=== PATIENT | female | born 1990 | race American Indian/Alaskan Native ===

== ENCOUNTER 2019-11-21 16:06 | Emergency (ER) | payer MEDICAID ==
[2019-11-21 16:14] VITALS: BP 113/73
[2019-11-21] MEDS ORDERED: ONDANSETRON 4 MG/2 ML INJ IV ONE ×2 (16:44→18:41)
[2019-11-21] MEDS ORDERED: SODIUM CHLORIDE 0.9% 1000 ML 1,000 ML IV ONE (16:44)
--- NOTE | 2019-11-21 17:00 | Emergency Department Report ---
ED HPI - General Chief complaint: Nausea/Vomiting/Diarrhea Stated complaint: VOMITTING Time Seen by Provider: 11/21/19 16:43 Source: patient Mode of arrival: Ambulatory Limitations: No Limitations - History of Present Illness Initial comments: 29-year-old -Surinames[place] female presents to the emergency room for nausea vomiting and right lower side pain. Patient states that she is but unsure of the weeks. Patient reports she has not started any care. Patient reports her last menstrual period was approximately September 22, 2019. Patient is 4 para 1 with 2 abortions. Patient reports no medical history has had ovarian cyst vaginal delivery hernia repair. Patient reports she takes no medications on a daily basis has no known drug allergies. Reports pain to 5 out of 10 complains of nausea and vomiting. MD Complaint: abdominal pain Onset/Timin -: days(s) Radiation: RLQ Severity: moderate Severity scale (0 -10): 5 Quality: sharp Consistency: intermittent Improves with: none Worsens with: none Associated symptoms: nausea/vomiting. denies: vaginal bleeding, vaginal discharge, headache, shortness of breath, weakness Vaginal bleeding: none :: Yes Last menstrual period: 09/22/19 Pre-emily care: none - Related Data : 4 Para: 1 Ab: 2 Previous Rx's Medication Instructions Recorded Last Taken Type Doxylamine Succinate [Nighttime 25 mg PO BID PRN #30 tablet 11/21/19 Unknown Rx Sleep-Aid] Vit-Fe Fumar-FA [ 1 tab PO QDAY #90 tablet 11/21/19 Unknown Rx Vitamin] Pyridoxine [Vitamin B-6 50MG TAB] 50 mg PO DAILY PRN #30 tab 11/21/19 Unknown Rx cephALEXin [Keflex] 500 mg PO Q12HR 7 Days #14 cap 11/21/19 Unknown Rx Allergies Allergy/AdvReac Type Severity Reaction Status Date / Time No Known Allergies Allergy Unverified 12/30/13 16:04 ED Review of Systems ROS: Stated complaint: VOMITTING Other details as noted in HPI Comment: All other systems reviewed and negative Gastrointestinal: nausea, vomiting ED Past Medical Hx - Past Medical History Previous Medical History?: Yes Additional medical history: ovarian cyst, Vaginal delivery x 1 - Surgical History Past Surgical History?: Yes Hx Appendectomy: Yes Additional Surgical History: hernia repair. ovarian cyst removed - Social History Smoking Status: Never Smoker - Medications Home Medications: Home Medications Medication Instructions Recorded Confirmed Last Taken Type Doxylamine Succinate [Nighttime 25 mg PO BID PRN #30 tablet 11/21/19 Unknown Rx Sleep-Aid] Vit-Fe Fumar-FA [ 1 tab PO QDAY #90 tablet 11/21/19 Unknown Rx Vitamin] Pyridoxine [Vitamin B-6 50MG TAB] 50 mg PO DAILY PRN #30 tab 11/21/19 Unknown Rx cephALEXin [Keflex] 500 mg PO Q12HR 7 Days #14 cap 11/21/19 Unknown Rx ED Physical Exam - General Limitations: No Limitations General appearance: alert, in no apparent distress, other (Actively vomiting) - Head Head exam: Present: atraumatic, normocephalic - Eye Eye exam: Present: normal appearance - ENT ENT exam: Present: mucous membranes moist - Neck Neck exam: Present: normal inspection, full ROM - Cardiovascular Cardiovascular Exam: Present: regular rate, normal rhythm. Absent: systolic murmur, diastolic murmur, rubs, gallop - Neurological Exam Neurological exam: Present: alert, oriented X3, normal gait - Psychiatric Psychiatric exam: Present: normal affect, normal mood - Skin Skin exam: Present: warm, dry, intact, normal color. Absent: rash ED Course Vital Signs 11/21/19 16:10 Temperature 98.2 F Pulse Rate 98 H Respiratory 18 Rate Blood Pressure 113/73 O2 Sat by Pulse 99 Oximetry ED Medical Decision Making - Lab Data Result diagrams: 11/21/19 16:50 11/21/19 16:50 - Radiology Data Radiology results: report reviewed Referring Physician:BARBARA VANEGASPatient Name:SHAVON HUERTASPatient ID:[id number] of :[id number]:FemaleAccession:[id number] Date:[id number] Status:Finalized Findings [facility] [address] [place] [address] Ultrasound Report Signed Patient: SHAVON HUERTAS MR#: [id number] : 1990 Acct:[id number] Age/Sex: 29 / F ADM Date: 11/21/19 Loc: ED Attending Dr: Ordering Physician: YULIA WEBSTER Date of Service: 11/21/19 Procedure(s): US OB transvaginal Accession Number(s): [id number] cc: YULIA WEBSTER US OB transvaginal, US OB <= 14 wk fetus add gest INDICATION / CLINICAL INFORMATION: Abdominal pain right lower quadrant. COMPARISON: None available. FINDINGS: Uterus measures 10 cm with small uterine fibroid. There is a viable single intrauterine gestation with a crown-rump length of 2.2 cm corresponding to an 8 week 6 day gestation. heart rate is recorded at 178 bpm. There appears to be a small subchorionic hemorrhage. 2.7 cm left ovarian cyst. The right ovary is normal. No free fluid collections are demonstrated. IMPRESSION: 1. Single viable a week 6 day intrauterine gestation. 2. Small uterine fibroid. 3. Tiny subchorionic hemorrhage. Signer Name: João Sewell MD Signed: 11/21/2019 6:17 PM Workstation Name: [id number] Transcribed By: [place] Dictated By: João Sewell MD Electronically Authenticated By: João Sewell MD Signed Date/Time: 11/21/191816 DD/ 13 TD/TT: - Medical Decision Making 29-year-old -[place] female presents to the emergency room for nausea vomiting and right lower side pain. Patient states that she is but unsure of the weeks. Patient reports she has not started any care. Patient reports her last menstrual period was approximately September 22, 2019. Patient is 4 para 1 with 2 abortions. Patient reports no medical his tory has had ovarian cyst vaginal delivery hernia repair. Patient reports she takes no medications on a daily basis has no known drug allergies. Reports pain to 5 out of 10 complains of nausea and vomiting. Urinalysis shows a mild urinary tract infection will treat with Keflex. Ultrasound shows she is 6 weeks and 4 days. Shows a mild subchorionic hemorrhage. Will start patient on vitamins referral to [facility]. Critical care attestation.: If time is entered above; I have spent that time in minutes in the direct care of this critically ill patient, excluding procedure time. ED Disposition Clinical Impression: Hyperemesis gravidarum Qualifiers: Weeks of gestation: less than 8 weeks Qualified Code(s): Z3A.01 - Less than 8 weeks gestation of UTI (urinary tract infection) during Qualifiers: Trimester: first trimester Qualified Code(s): O23.41 - Unspecified infection of urinary tract in , first trimester Disposition: DC-01 TO HOME OR SELFCARE Is pt being admited?: No Does the pt Need Aspirin: No Condition: Stable Instructions: Hyperemesis Gravidarum (ED), Urinary Tract Infection in Women (ED) Additional Instructions: Urine shows a mild urinary tract infection will treat you with antibiotics complete antibiotics as prescribed. Ultrasound shows that you are approximately 6 weeks and 4 days . I am placing you on vitamins and a referral to [facility]. Prescriptions: cephALEXin [Keflex] 500 mg PO Q12HR 7 Days #14 cap Doxylamine Succinate [Nighttime Sleep-Aid] 25 mg PO BID PRN #30 tablet PRN Reason: Nausea And Vomiting Vit-Fe Fumar-FA [ Vitamin] 1 tab PO QDAY #90 tablet Pyridoxine [Vitamin B-6 50MG TAB] 50 mg PO DAILY PRN #30 tab PRN Reason: Nausea And Vomiting Referrals: PRIMARY CAREMD [Primary Care Provider] - 3-5 Days [facility] [Provider Group] - 3-5 Days [facility] [Provider Group] - 3-5 Days [facility] [Provider Group] - 3-5 Days [facility] [Provider Group] - 3-5 Days
[2019-11-21 17:08] LABS: Basophils # (Auto) 0.1 K/mm3 (0.0-0.1); Basophils % (Auto) 0.5 % (0.0-1.8); Eosinophils % (Auto) 0.1 % (0.0-4.3); Hematocrit 38.5 % (30.3-42.9); Hemoglobin 13.1 gm/dl (10.1-14.3); Lymphocytes # (Auto) 1.7 K/mm3 (1.2-5.4); Lymphocytes % (Auto) 13.7 % (13.4-35.0); Mean Corpuscular HGB Conc 34 % (30-34); Mean Corpuscular Volume 86 fl (79-97); Monocytes # (Auto) 0.6 K/mm3 (0.0-0.8); Monocytes % (Auto) 4.6 % (0.0-7.3); Platelet Count 342 K/mm3 (140-440); Red Blood Count 4.47 M/mm3 (3.65-5.03); Red Cell Distribution Width 12.5 % (13.2-15.2)
[2019-11-21 17:20] LABS: Bacteria,Urine 1+ /HPF (Negative); Bilirubin,Urine NEG (Negative); Blood,Urine SM (Negative); Color,Urine Yellow (Yellow); Mucus,Urine 3+ /HPF; Protein,Urine <15 mg/dL mg/dL (Negative); Urobilinogen,Urine < 2.0 mg/dL (<2.0)
[2019-11-21 17:29] LABS: Alanine Aminotransferase 12 units/L (7-56); BUN/Creatinine Ratio 16; Blood Urea Nitrogen 11 mg/dL (7-17); Calcium 9.9 mg/dL (8.4-10.2); Hemolysis Index 8
--- NOTE | 2019-11-21 18:21 | Ultrasound Report ---
US OB transvaginal, US OB <= 14 wk fetus add gest INDICATION / CLINICAL INFORMATION: Abdominal pain right lower quadrant. COMPARISON: None available. FINDINGS: Uterus measures 10 cm with small uterine fibroid. There is a viable single intrauterine gestation with a crown-rump length of 2.2 cm corresponding to a n 8 week 6 day gestation. heart rate is recorded at 178 bpm. There appears to be a small subchorionic hemorrhage. 2.7 cm left ovarian cyst. The right ovary is normal. No free fluid collections are demonstrated. IMPRESSION: 1. Single viable a week 6 day intrauterine gestation. 2. Small uterine fibroid. 3. Tiny subchorionic hemorrhage. Signer Name: João Sewell MD Signed: 11/21/2019 6:17 PM Workstation Name: [id number]
== END 2019-11-21 18:59 | disposition home or self-care (01) ==
LOC: ED 16:06
DX: O21.0 Mild hyperemesis gravidarum (principal); O21.8 Other vomiting complicating pregnancy; O23.41 Unspecified infection of urinary tract in pregnancy, first trimester; Z3A.08 8 weeks gestation of pregnancy; Z79.899 Other long term (current) drug therapy; Z90.49 Acquired absence of other specified parts of digestive tract; Z98.890 Other specified postprocedural states
CPT/HCPCS: 36415; 76802; 76817; 80053; 81001; 84702; 85025; 87086; 96361; 96374; 96376; 99284; J2405; J7030